=== PATIENT | male | born 1990 | race Caucasian/White ===

== ENCOUNTER 2017-07-14 07:16 | Emergency (ER) | payer OTHER, MEDICAID ==
[~2017-07-14] VITALS: Ht 182.9 cm; Wt 111.4 kg
[~2017-07-14 07:16] MED LIST: ARIP10TA8 PO
[2017-07-14 07:21] VITALS: BP 124/54
[2017-07-14] MEDS ORDERED: ACETAMINOPHEN 500 MG TABLET PO ONE (07:45)
[2017-07-14] MEDS ORDERED: CYCLOBENZAPRINE HCL 10 MG TABLET PO ONE (07:45)
[2017-07-14] MEDS ORDERED: KETOROLAC TROMETHAMINE 30 MG/ML VIAL IM ONE (07:45)
== END 2017-07-14 08:51 | disposition home or self-care (01) ==
LOC: EMS 07:19
DX: M54.5 Low back pain (principal); F12.90 Cannabis use, unspecified, uncomplicated
CPT/HCPCS: 96372; 99283; J1885